=== PATIENT | female | born 1970 | race African-American/Black ===

== ENCOUNTER 2024-11-24 09:36 | Emergency (ER) | payer OTHER ==
[~2024-11-24] VITALS: Ht 167.6 cm; Wt 74.0 kg
[2024-11-24 09:39] VITALS: O2SAT 98
[2024-11-24] MEDS: HYDROCODONE/ACETAMINOPHEN 10/325MG TABLET PO ONE (10:28)
[2024-11-24] MEDS ORDERED: HYDR-4009 MT (12:21)
[2024-11-24] MEDS ORDERED: IBUP-2029 MT (12:21)
[2024-11-24 12:28] VITALS: BP 146/85; PULSE 78; RESP 18; TEMP 37.1; O2SAT 99
== END 2024-11-24 12:38 | disposition home or self-care (01) ==
LOC: ER 09:36
DX: Z79.899 Other long term (current) drug therapy (principal); M17.0 Bilateral primary osteoarthritis of knee; M70.51 Other bursitis of knee, right knee; M70.52 Other bursitis of knee, left knee; G44.309 Post-traumatic headache, unspecified, not intractable; V89.2XXA Person injured in unspecified motor-vehicle accident, traffic, initial encounter; Y93.89 Activity, other specified; Y92.89 Other specified places as the place of occurrence of the external cause; Y99.8 Other external cause status
CPT/HCPCS: 73560; 81025; 99284